=== PATIENT | female | born 1940 | race American Indian/Alaskan Native ===

== ENCOUNTER 2019-04-02 11:45 | Day surgery (SDC) | payer OTHER ==
[~2019-04-02] VITALS: Ht 165.1 cm; Wt 64.4 kg
[~2019-04-02 11:45] MED LIST: ASPI325T4 PO; ATOR10TA52 PO; LISI-646 PO; METF-490 PO
[2019-04-02] MEDS ORDERED: ANGIOMAX 250 MG VIAL IV ONE (13:06)
[2019-04-02] MEDS ORDERED: MIDAZOLAM HCL 1MG/1ML-2 ML VIAL ONE (13:07)
[2019-04-02] MEDS ORDERED: VERAPAMIL 2.5MG/ML INJ 2ML VIAL IV ONE (13:07)
[2019-04-02] MEDS ORDERED: HEPARIN SODIUM (PORCINE) 5000 UNITS/ML 1ML VIAL ONE (13:07)
[2019-04-02] MEDS ORDERED: fentaNYL CITRATE 100 MCG/2 ML VL ONE (13:07)
[2019-04-02] MEDS ORDERED: SODIUM CHL 0.9% 0 ML ONE (13:07)
[2019-04-02] MEDS ORDERED: IODIXANOL 320MG/ML 100ML BTL IV ONE (13:09)
[2019-04-02] MEDS ORDERED: LIDOCAINE 2%HCL (LOCAL ANESTH.) INJ 20ML MDV ONE (13:09)
[2019-04-02] MEDS ORDERED: SODIUM CHLORIDE 0.9% 1,000 ML IV SCH (14:36)
[2019-04-02] MEDS ORDERED: ONDANSETRON HCL 4 MG/2 ML VIAL IV PRN (14:45)
[2019-04-02] MEDS ORDERED: HYDROcodone-ACET 5/325MG TAB PO PRN (14:45)
== END 2019-04-02 16:15 | disposition home or self-care (01) ==
LOC: CATH 11:45
PROVIDERS: ATTEND Internal Medicine Cardiovascular Disease
DX: I25.10 Atherosclerotic heart disease of native coronary artery without angina pectoris (principal); I10 Essential (primary) hypertension; E78.5 Hyperlipidemia, unspecified; Z86.73 Personal history of transient ischemic attack (TIA), and cerebral infarction without residual deficits; Z87.891 Personal history of nicotine dependence; E11.9 Type 2 diabetes mellitus without complications; Z79.82 Long term (current) use of aspirin; Z79.899 Other long term (current) drug therapy; Z79.84 Long term (current) use of oral hypoglycemic drugs
CPT/HCPCS: 93458; C1760; C1894; J1644; J2250; J3010; Q9967; 99152; 99153